=== PATIENT | male | born 1955 | race Caucasian/White ===

== ENCOUNTER 2022-11-15 09:09 | Emergency (ER) | payer BC ==
[2022-11-15] MEDS ORDERED: Baclofen 10 MG Tab PO ONE (10:35)
[2022-11-15] MEDS ORDERED: Ondansetron 4 MG Tab.DIS PO ONE (12:18)
== END 2022-11-15 14:44 | disposition home or self-care (01) ==
LOC: JD.ED 09:09
DX: M54.12 Radiculopathy, cervical region (principal)
CPT/HCPCS: 36415; 72125; 80053; 85025; 99284; A9270; 99283

== ENCOUNTER 2023-12-11 16:01 | Emergency (ER) | payer BC ==
[2023-12-11] MEDS ORDERED: EPINEPHrine 1:10,000 1 MG/10 ML Syringe ONE ×9 (16:03→16:33)
[2023-12-11] MEDS ORDERED: Sodium Bicarbonate 8.4% 50 MEQ/50 ML Syringe ONE ×2 (16:05→16:14)
[2023-12-11] MEDS ORDERED: Sodium Chloride 0.9% 1,000 ML IV ONE (16:08)
[2023-12-11 16:38] LABS: BASOPHILS ABSOLUTE AUTO 0.1 K/mm3 (0.0-0.2); BASOPHILS PERCENT AUTO 0.4 % (0.0-1.0); EOSINOPHILS ABSOLUTE AUTO 0.2 K/mm3 (0.0-0.4); EOSINOPHILS PERCENT AUTO 1.3 % (0.0-6.0); HEMATOCRIT 36.4 % (42.0-52.0); HEMOGLOBIN 11.3 gm/dl (14.0-18.0); IMMATURE GRAN ABSOLUTE AUTO 0.56 K/mm3 (0.00-0.05); IMMATURE GRAN PERCENT AUTO 3.4 % (0.0-0.4); LYMPHOCYTES ABSOLUTE AUTO 7.2 K/mm3 (1.0-4.8); LYMPHOCYTES PERCENT AUTO 43.5 % (24.0-44.0); MEAN CORPUSCULAR HEMOGLOBIN 28.3 pg (28.0-32.0); MEAN CORPUSCULAR VOLUME 91.2 fl (83.0-99.0); MEAN PLATELET VOLUME 10.4 fl (9.4-12.4); MONOCYTES ABSOLUTE AUTO 1.3 K/mm3 (0.0-0.8); MONOCYTES PERCENT AUTO 7.6 % (0.0-8.0); NEUTROPHILS ABSOLUTE AUTO 7.3 K/mm3 (1.8-7.7); NEUTROPHILS PERCENT AUTO 43.8 % (41.0-71.0); NRBC ABSOLUTE 0.06 (0.00-0.02); NRBC PERCENT 0.4 % (0.0-0.2); PLATELET COUNT,PLT 131 K/mm3 (150-400); RED BLOOD CELL COUNT 3.99 M/mm3 (4.52-5.90); WHITE BLOOD CELL COUNT,WBC 16.56 K/mm3 (3.9-11.3)
[2023-12-11 16:44] LABS: INR 1.22; PROTHROMBIN TIME 12.9 SECONDS (9.7-12.0)
[2023-12-11 16:45] LABS: PTT,PARTIAL THROMBOPLSTIN TIME 44.4 SECONDS (21.7-31.4)
[2023-12-11 16:56] LABS: ALANINE AMINOTRANSFERASE,ALT 71 U/L (16-63); ALBUMIN 2.7 g/dl (3.4-5.0); ALKALINE PHOSPHATASE 81 U/L (46-116); ANION GAP 13.7 (5-15); ASPARTATE AMNIOTRANSFERASE,AST 71 U/L (15-37); BILIRUBIN TOTAL 0.3 mg/dL (0.2-1.0); BLOOD UREA NITROGEN,BUN 30 mg/dL (7-18); CALCIUM 7.8 mg/dL (8.5-10.1); CARBON DIOXIDE,CO2 24 mEq/L (21-32); CHLORIDE,CL 107 mEq/L (98-107); CREATININE 1.2 mg/dL (0.7-1.3); ESTIMATED GFR 67 mL/min (>60); GLUCOSE RANDOM 150 mg/dL (70-99); POTASSIUM,K 4.7 mEq/L (3.5-5.1); PROTEIN TOTAL,TP 5.4 g/dl (6.4-8.2); SODIUM,NA 140 mEq/L (136-145)
== END 2023-12-11 18:00 | disposition expired ==
LOC: JD.ED 16:01
DX: I46.9 Cardiac arrest, cause unspecified (principal); Z79.899 Other long term (current) drug therapy
CPT/HCPCS: 31500; 36415; 80053; 80307; 83605; 85025; 85610; 85730; 86850; 86900; 86901; 92950; 96374; 99291; 99292; J0171; J7030; 99285; J3490